=== PATIENT | male | born 1995 | race Caucasian/White ===

== ENCOUNTER 2018-05-01 20:42 | Emergency (ER) | payer SELFPAY ==
[~2018-05-01 20:42] MED LIST: Lidocaine 1% 20 ML MDV ONE
[2018-05-01] MEDS ORDERED: diphenhydrAMINE 50 MG/ML VIAL ONE (21:05)
[2018-05-01] MEDS ORDERED: cefTRIAXone\\ROCEPHIN 1 GM VIAL ONE (21:05)
[2018-05-01] MEDS ORDERED: Dexamethasone 10 MG/ML VIAL ONE (21:05)
== END 2018-05-01 22:25 | disposition home or self-care (01) ==
LOC: MADERS 20:42
DX: K12.2 Cellulitis and abscess of mouth (principal)
CPT/HCPCS: 96372; J0696; J1100; J1200; J2001